=== PATIENT | female | born 1955 | race Caucasian/White ===

== ENCOUNTER 2016-06-29 11:07 | Observation (INO) | payer OTHER ==
[~2016-06-29] VITALS: Ht 149.9 cm; Wt 67.1 kg
== END 2016-07-01 12:15 | disposition home or self-care (01) ==
LOC: ER 11:07 → MED 16:47
PROVIDERS: ADMIT Internal Medicine
DX: I11.0 Hypertensive heart disease with heart failure (principal); I50.9 Heart failure, unspecified; N28.9 Disorder of kidney and ureter, unspecified; E11.9 Type 2 diabetes mellitus without complications; D50.9 Iron deficiency anemia, unspecified; E87.6 Hypokalemia; E78.5 Hyperlipidemia, unspecified; Z82.49 Family history of ischemic heart disease and other diseases of the circulatory system; Z84.1 Family history of disorders of kidney and ureter; Z79.84 Long term (current) use of oral hypoglycemic drugs; Z79.899 Other long term (current) drug therapy; Z90.49 Acquired absence of other specified parts of digestive tract
CPT/HCPCS: 36415; 87486; 87581; 87633; 87798; 96372; 96374; 96376; A9540; A9567; G0378; J1650; J1940; P9021